=== PATIENT | male | born 1980 | race Caucasian/White ===

== ENCOUNTER 2019-05-29 19:46 | Emergency (ER) | payer SELFPAY ==
[~2019-05-29] VITALS: Ht 188 cm; Wt 86.6 kg
[2019-05-29 19:55] VITALS: BP 125/61
[2019-05-29] MEDS ORDERED: ceFAZolin SODIUM IV Push 1 GM VIAL. IVP ONE (20:15)
[2019-05-29] MEDS ORDERED: MORPHINE SULFATE 4 MG/ML VIAL. IV ONE ×2 (20:15→21:30)
[2019-05-29] MEDS ORDERED: ONDANSETRON PF 4 MG/2 ML VIAL. IVP ONE (20:15)
[2019-05-29 20:20] LABS: BASO # 0.1 x10^3/uL (0.0-0.2); BASO % 1 % (0-3); EOS # 0.2 x10^3/uL (0.0-0.7); EOS % 1 % (0-3); HEMATOCRIT 44.1 % (39.0-53.0); LYMPH # 3.7 x10^3/uL (1.0-4.8); LYMPH % 24 % (24-48); MEAN CORPUSCULAR HEMOGLOBIN 32 pg (25-35); MEAN CORPUSCULAR HGB CONC 34 g/dL (31-37); MEAN CORPUSCULAR VOLUME 94 fL (79-100); MONO % 7 % (0-9); NEUT # 10.2 x10^3/uL (1.8-7.7); NEUT % 67 % (31-73); PLATELET COUNT 246 x10^3/uL (140-400); RED BLOOD COUNT 4.67 x10^6/uL (4.30-5.70); RED CELL DISTRIBUTION WIDTH 12.8 % (11.5-14.5); WHITE BLOOD COUNT 15.3 x10^3/uL (4.0-11.0)
[2019-05-29 20:27] LABS: CALCIUM 8.8 mg/dL (8.5-10.1); CREATININE 0.9 mg/dL (0.7-1.3); GFR 93.5; POTASSIUM 3.6 mmol/L (3.5-5.1)
--- NOTE | 2019-05-29 20:58 | RAD ---
Study: FINGER(S) LEFT Indication: Trauma. Table saw incident. Comparison: None. Findings: Comminuted, open fracture of the index finger intermediate phalanx. Intra-articular extension into the DIP joint. Multiple small fracture fragments are displaced. No fracture seen elsewhere. Impression: Extensively comminuted, open fracture of the index finger intermediate phalanx with fracture extension into the DIP joint.. Electronically signed by: RENATO ARGUETA MD (05/29/2019 8:55 PM) [id number]
[2019-05-29] MEDS ORDERED: DIPHTH,PERTUSS(ACELL),TET TOX 0.5 ML DISP.SYRIN. VAX IM ONE (21:30)
[2019-05-29] MEDS ORDERED: OXYC-325 PO (23:29)
[2019-05-29] MEDS ORDERED: CEPH-264 PO (23:29)
--- NOTE | 2019-05-30 05:38 | PHYS DOC ---
Past Medical History Past Medical History: No Pertinent History Past Surgical History: Appendectomy Smoking Status: Current Every Day Smoker Alcohol Use: Occasionally Adult General Chief Complaint Chief Complaint: FINGER INJURY [facility] HPI Patient is a 39 year old right-handed male presents with table saw injury to left index finger just prior to ED arrival. On exam, the patient has a partially avulsed distal index finger injury macerated soft tissue and obvious fracture. Distal sensation Refill intact. Tetanus today. [] Review of Systems Review of Systems ROS as per HPI All other systems were reviewed and found to be within normal limits, except as documented in this note. Current Medications Current Medications Current Medications Medications (Trade) Dose Ordered Sig/Mari Start Time Stop Time Status Last Admin Dose Admin Cefazolin Sodium (Ancef) 2 gm 1X ONCE 05/29/19 20:15 05/29/19 20:25 DC 05/29/19 21:08 2 GM Diphtheria/ Tetanus/Acell Pertussis (Boostrix) 0.5 ml ONCE ONCE 05/29/19 21:30 05/29/19 21:31 DC 05/29/19 21:49 0.5 ML Morphine Sulfate (Morphine Sulfate) 4 mg 1X ONCE 05/29/19 21:30 05/29/19 21:46 DC 05/29/19 21:47 4 MG Ondansetron HCl (Zofran) 4 mg 1X ONCE 05/29/19 20:15 05/29/19 20:25 DC 05/29/19 20:27 4 MG Allergies Allergies Allergies Coded Allergies Type Severity Reaction Last Updated Verified No Known Drug Allergies 05/29/19 No Physical Exam Physical Exam Constitutional: Well developed, well nourished, no acute distress, non-toxic annamaria earance. [] HENT: Normocephalic, atraumatic, bilateral external ears normal, oropharynx moist, no oral exudates, nose normal. [] Eyes: PERRLA, EOMI, conjunctiva normal, no discharge. [] Extremities: Left hand, partiaal avulsion of distal index finger with macerated soft tissue and deformity. Distal sensation and cap refill intact. Exposed tendon or bone.[] Neurologic: Alert and oriented X 3. [] Psychologic: Affect normal, judgement normal, mood normal. [] Current Patient Data Vital Signs Vital Signs Date Time Temp Pulse Resp B/P (MAP) Pulse Ox O2 Delivery O2 Flow Rate FiO2 2/10/20 22:17 16 96 Room Air 05/29/19 19:55 98.5 94 125/61 (82) 98.5 Lab Values Laboratory Tests Test 05/29/19 20:14 White Blood Count 15.3 x10^3/uL (4.0-11.0) H Red Blood Count 4.67 x10^6/uL (4.30-5.70) Hemoglobin 15.0 g/dL (13.0-17.5) Hematocrit 44.1 % (39.0-53.0) Mean Corpuscular Volume 94 fL (79-100) Mean Corpuscular Hemoglobin 32 pg (25-35) Mean Corpuscular Hemoglobin Concent 34 g/dL (31-37) Red Cell Distribution Width 12.8 % (11.5-14.5) Platelet Count 246 x10^3/uL (140-400) Neutrophils (%) (Auto) 67 % (31-73) Lymphocytes (%) (Auto) 24 % (24-48) Monocytes (%) (Auto) 7 % (0-9) Eosinophils (%) (Auto) 1 % (0-3) Basophils (%) (Auto) 1 % (0-3) Neutrophils # (Auto) 10.2 x10^3/uL (1.8-7.7) H Lymphocytes # (Auto) 3.7 x10^3/uL (1.0-4.8) Monocytes # (Auto) 1.0 x10^3/uL (0.0-1.1) Eosinophils # (Auto) 0.2 x10^3/uL (0.0-0.7) Basophils # (Auto) 0.1 x10^3/uL (0.0-0.2) Sodium Level 139 mmol/L (136-145) Potassium Level 3.6 mmol/L (3.5-5.1) Chloride Level 103 mmol/L (98-107) Carbon Dioxide Level 28 mmol/L (21-32) Anion Gap 8 (6-14) Blood Urea Nitrogen 7 mg/dL (8-26) L Creatinine 0.9 mg/dL (0.7-1.3) Estimated GFR (Cockcroft-Gault) 93.5 Glucose Level 115 mg/dL (70-99) H Calcium Level 8.8 mg/dL (8.5-10.1) Laboratory Tests 05/29/19 20:14 Laboratory Tests 05/29/19 20:14 EKG EKG [] Radiology/Procedures Radiology/Procedures [Left fingers: Extensively comminuted intermediate phalangeal fracture of the second digit extended into the distal interphalangeal joint per radiology report] Course & Med Decision Making Course & Med Decision Making Pertinent Labs and Imaging studies reviewed. (See chart for details) [IV antibiotics given. Wound irrigated and bandaged and placed in splint and sling. Case reviewed in detail with Dr. Sequeira and surgeon road traffic controller for [facility]] Who see patient in the office in the next 2 days. Antibiotics and pain medications prescribed. Return precautions reviewed. Dragon Disclaimer Lillieon Disclaimer This electronic medical record was generated, in whole or in part, using a voice recognition dictation system. Departure Departure Impression: Primary Impression: Open fracture of finger of left hand Disposition: HOME, SELF-CARE Condition: STABLE Patient Instructions: Finger Fracture, [id number], Laceration Care, Adult, [id number] Additional Instructions: Please wear sling and splint. Keep arm elevated at rest. Take pain medication and antibiotics as directed. Contact [facility] plastic surgeon road traffic controller tomorrow morning and schedule outpatient follow-up for later this week. Scripts Oxycodone HCl/Acetaminophen (Percocet 5-325 mg Tablet) 1 Each Tablet 1 TAB PO QIDPRN PRN for PAIN MDD 4 Tablet(s) for 5 Days, #20 TAB 0 Refills Prov: CHIRAG GARCIA DO 05/29/19 Cephalexin (KEFLEX) 500 Mg Capsule 1 CAP PO TID for 10 Days, #30 CAP 0 Refills Prov: CHIRAG GARCIA DO 05/29/19 CHIRAG GARCIA DO May 30, 2019 05:38
== END 2019-05-29 23:39 | disposition home or self-care (01) ==
LOC: ER 19:46
DX: S62.631B Displaced fracture of distal phalanx of left index finger, initial encounter for open fracture (principal); F17.200 Nicotine dependence, unspecified, uncomplicated; W31.2XXA Contact with powered woodworking and forming machines, initial encounter; Y93.89 Activity, other specified; Y92.89 Other specified places as the place of occurrence of the external cause; Y99.8 Other external cause status
CPT/HCPCS: 29130; 36415; 73140; 80048; 85025; 90471; 90715; 96374; 96375; 96376; 99285; J0690; J2270; J2405; 99284-25